=== PATIENT | female | born 1985 | race Caucasian/White ===

== ENCOUNTER 2018-09-25 10:00 | Observation (INO) | payer MEDICAID, OTHER ==
[~2018-09-25] VITALS: Ht 160 cm; Wt 68.0 kg
--- NOTE | 2018-09-25 10:15 | NUR ---
PT 31 WEEKS , L&D RN NOTIFIED AND WILL COME TO ED TO EVALUATE HEART TONES. EKG COMPLETED IN TRIAGE, PT TO ROOM 36 VIA WHEELCHAIR, THERAPEUTIC RECREATION SPECIALIST TO ASSIST PT IN CHANGING INTO GOWN AND PLACING PT ON ALL MONITORS.
--- NOTE | 2018-09-25 10:36 | NUR ---
FIRST CONTACT WITH PT: 32 Y/O FEMALE PRESENTS TO ED WITH C/O SORE THROAT. PT STATES "I'M 3O WEEKS AND I HAVE HAD A SORE THROAT FOR 3 DAYS AND A COUGH. IT'S GOTTEN WORSE OVER THE LAST TWO DAYS. MY LOWER BACK IS SO SORE WELL. IT'S BEEN WORSE OVER THE LAST TWO DAYS. I HAVE VERICOSE VEINS, BUT MY OB IS AWARE AND GOING TO SEND ME TO A SPECIALIST. I'VE BEEN MORE SORE FROM THE WAIST DOWN LATELY." FAMILY BEDSIDE. NO C/O VAGINAL BLEEDING, ABD CRAMPS, CONTRACTIONS, N/V/D, TRAUMA, SYNCOPE, CP. PT STATES "THE BABY IS MOVING A TON." PT PLACED ON CONT PULSE OX,NIBP
--- NOTE | 2018-09-25 10:56 | NUR ---
PT EDUCATED REGARDING UA NEEDED. PT STATES "I DON'T EVEN HAVE TO GO RIGHT NOW. AND NOBODY IS STRAIGHT CATHING ME!" PT GIVEN UA CUP AND TOLD WHERE BATHROOM IS IF SHE IS ABLE TO PROVIDE SAMPLE.
[2018-09-25 11:19] LABS: BASOPHILS # (AUTO) 0.03 x10^3/uL (0-0.1); BASOPHILS % (AUTO) 0 % (0-1); EOSINOPHILS % (AUTO) 0 % (1-7); LYMPHOCYTES # (AUTO) 0.49 x10^3/uL (1-3.4); LYMPHOCYTES % (AUTO) 7 % (22-44); MD NO; MEAN CORPUSCULAR HEMOGLOBIN 29.7 pg (27.0-34.8); MEAN CORPUSCULAR VOLUME 89.9 fL (80-100); MEAN PLATELET VOLUME 8.5 fL (7.4-10.4); MONOCYTES # (AUTO) 0.49 x10^3/uL (0.2-0.8); MONOCYTES % (AUTO) 7 % (2-9); NEUTROPHILS # (AUTO) 6.27 x10^3/uL (1.8-6.8); NEUTROPHILS % (AUTO) 86 % (42-75); PLATELET COUNT 236 x10^3/uL (130-400); RED BLOOD COUNT 3.52 x10^6/uL (3.82-5.3); RED CELL DISTRIBUTION WIDTH 13.1 % (9.6-15.2)
[2018-09-25 11:28] LABS: RAPID INFLUENZA A POSITIVE (Negative); RAPID INFLUENZA B Negative (Negative)
--- NOTE | 2018-09-25 11:29 | NUR ---
PT AMBULATORY WITH STEADY GAIT TO BATHROOM. PT PROVIDED URINE SAMPLE. SAMPLE SENT TO LAB. PT REATTACHED TO ALL MONITORS. NO NEEDS REQUESTED AT THIS TIME.
[2018-09-25] MEDS ORDERED: ACETAMINOPHEN 325 MG TABLET PO ONE (11:30)
[2018-09-25 11:31] LABS: ALANINE AMINOTRANSFERASE 26 U/L (12-78); ALBUMIN 2.6 g/dL (3.4-5.0); ANION GAP 10 mmol/L (5-15); CALCIUM 7.3 mg/dL (8.5-10.1); CHLORIDE 104 mmol/L (98-107)
[2018-09-25 11:36] LABS: ALKALINE PHOSPHATASE 144 U/L (45-117); BILIRUBIN,TOTAL 0.4 mg/dL (0.2-1.0); TOTAL PROTEIN 6.6 g/dL (6.4-8.2)
[2018-09-25] MEDS ORDERED: ACETAMINOPHEN 500 MG TABLET ONE (11:37)
[2018-09-25 11:40] LABS: MICROSCOPIC INDICATED
--- NOTE | 2018-09-25 11:46 | NUR ---
PT CONTINUES TO REST ON GURNEY. PT GIVEN WARM BLANKETS. NO ACUTE DISTRESS NOTED. FAMILY BEDSIDE. NO NEEDS REQUESTED AT THIS TIME
[2018-09-25 11:47] VITALS: BP 94/47
[2018-09-25 11:51] LABS: CULTURE INDICATED? YES
[2018-09-25] MEDS ORDERED: PLEASE ENTER HEIGHT AND WEIGHT MC SCH (12:00)
[2018-09-25] MEDS ORDERED: OSELTAMIVIR 75 MG CAPSULE ONE (12:00)
[2018-09-25] MEDS ORDERED: OSELTAMIVIR 75 MG CAPSULE PO ONE (12:00)
--- NOTE | 2018-09-25 12:01 | NUR ---
PT HAS MASK ON. MASK GIVEN TO MOTHER, MOTHER REFUSES TO WEAR MASK.
--- NOTE | 2018-09-25 12:06 | NUR ---
Patient/Caregiver given discharge instructions and they have confirmed that they understand the instructions. Patient WHEELED UP TO L&D PER REQUEST. PT LEFT WITH ALL PERSONAL BELONGINGS.
[2018-09-25] MEDS ORDERED: LACTATED RINGERS 1,000 ML IVBOLUS PRN (13:00)
== END 2018-09-25 19:20 | disposition home or self-care (01) ==
LOC: ED 11:38 → LDIP 15:41
PROVIDERS: ADMIT Obstetrics & Gynecology; ATTEND Obstetrics & Gynecology
DX: O60.03 Preterm labor without delivery, third trimester (principal); O99.513 Diseases of the respiratory system complicating pregnancy, third trimester; J10.1 Influenza due to other identified influenza virus with other respiratory manifestations; Z87.440 Personal history of urinary (tract) infections; Z3A.30 30 weeks gestation of pregnancy
CPT/HCPCS: 36415; 59025; 71045; 80053; 81001; 83605; 85025; 87081; 87086; 87400; 87880; 93005; 99284; G0378; 87077; 96360; 96361; 96372

== ENCOUNTER → 2018-09-25 | Outpatient (CLI) | payer MEDICAID ==
[~2018-09-25] VITALS: Ht 160 cm; Wt 67.3 kg
[~2018-09-25] MED LIST: LACTATED RINGERS 1,000 ML IV SCH; LACTATED RINGERS 1,000 ML IVBOLUS PRN
[2018-09-25 12:34] VITALS: BP 90/54
== END | disposition home or self-care (01) ==
LOC: LDOP 12:17
PROVIDERS: ATTEND Obstetrics & Gynecology
DX: O26.893 Other specified pregnancy related conditions, third trimester (principal); M54.9 Dorsalgia, unspecified; Z3A.30 30 weeks gestation of pregnancy
CPT/HCPCS: 36415; 82731; J7120

== ENCOUNTER 2018-09-29 07:11 | Outpatient (CLI) | payer MEDICAID ==
[~2018-09-29] VITALS: Ht 160 cm; Wt 68.0 kg
[2018-09-29 07:46] VITALS: BP 118/81
[2018-09-29] MEDS ORDERED: DIPHENHYDRAMINE 25 MG CAPSULE ONE (08:29)
[2018-09-29] MEDS ORDERED: DIPHENHYDRAMINE 25 MG CAPSULE PO ONE (08:30)
[2018-09-29 08:44] LABS: BASOPHILS # (AUTO) 0.02 x10^3/uL (0-0.1); BASOPHILS % (AUTO) 1 % (0-1); EOSINOPHILS # (AUTO) 0.05 x10^3/uL (0-0.4); EOSINOPHILS % (AUTO) 1 % (1-7); LYMPHOCYTES # (AUTO) 1.38 x10^3/uL (1-3.4); LYMPHOCYTES % (AUTO) 33 % (22-44); MD NO; MEAN CORPUSCULAR HEMOGLOBIN 29.5 pg (27.0-34.8); MEAN CORPUSCULAR HGB CONC 32.9 g/dL (32.4-35.8); MEAN CORPUSCULAR VOLUME 89.6 fL (80-100); MEAN PLATELET VOLUME 8.1 fL (7.4-10.4); MONOCYTES # (AUTO) 0.32 x10^3/uL (0.2-0.8); MONOCYTES % (AUTO) 8 % (2-9); NEUTROPHILS # (AUTO) 2.36 x10^3/uL (1.8-6.8); NEUTROPHILS % (AUTO) 57 % (42-75); PLATELET COUNT 268 x10^3/uL (130-400); RED BLOOD COUNT 3.58 x10^6/uL (3.82-5.3); RED CELL DISTRIBUTION WIDTH 13.4 % (9.6-15.2)
[2018-09-29 08:55] LABS: ALANINE AMINOTRANSFERASE 49 U/L (12-78); ALBUMIN 2.2 g/dL (3.4-5.0); ANION GAP 5 mmol/L (5-15); CALCIUM 7.7 mg/dL (8.5-10.1); CHLORIDE 108 mmol/L (98-107); CREATININE 0.56 mg/dL (0.55-1.02)
[2018-09-29 08:57] LABS: ALKALINE PHOSPHATASE 159 U/L (45-117); BILIRUBIN,TOTAL 0.7 mg/dL (0.2-1.0); TOTAL PROTEIN 6.3 g/dL (6.4-8.2)
[2018-09-29] MEDS ORDERED: PREN1TAB60 PO (09:20)
== END 2018-09-29 09:52 | disposition home or self-care (01) ==
LOC: LDOP 07:11
PROVIDERS: ATTEND Obstetrics & Gynecology
DX: O26.893 Other specified pregnancy related conditions, third trimester (principal); L29.9 Pruritus, unspecified; Z3A.31 31 weeks gestation of pregnancy
CPT/HCPCS: 36415; 59025; 80053; 85025; 99211; Q0163; G0463

== ENCOUNTER 2018-10-31 22:17 | Outpatient (CLI) | payer MEDICAID ==
[~2018-10-31 22:17] MED LIST changes: -LACTATED RINGERS 1,000 ML IV SCH; -LACTATED RINGERS 1,000 ML IVBOLUS PRN; +PREN1TAB60 PO
== END 2018-10-31 23:10 | disposition home or self-care (01) ==
LOC: LDOP 22:17
PROVIDERS: ATTEND Obstetrics & Gynecology
DX: O46.93 Antepartum hemorrhage, unspecified, third trimester (principal); Z3A.36 36 weeks gestation of pregnancy
CPT/HCPCS: 59025; 89060; 99211; G0463; Q0114

== ENCOUNTER 2018-11-07 08:01 | Inpatient (IN) | payer MEDICAID ==
[~2018-11-07] VITALS: Ht 160 cm; Wt 65.0 kg
[2018-11-07] MEDS ORDERED: OXYTOCIN 30U/ 0.9% NaCL 500ML 500 ML IV ONE (21:12)
[2018-11-07 21:15] VITALS: BP 125/79
[2018-11-07] MEDS ORDERED: OXYTOCIN 30U/ 0.9% NaCL 500ML 500 ML ONE (21:20)
[2018-11-07] MEDS ORDERED: NEWBORN KIT ONE (21:20)
[2018-11-07] MEDS ORDERED: ONDANSETRON 2MG/ML, 2ML IVPush PRN (21:30)
[2018-11-07] MEDS ORDERED: FENTANYL PF 100 MCG/2ML IVPush PRN (21:30)
[2018-11-07] MEDS ORDERED: CALCIUM CARBONATE 500 MG TAB.CHEW PO PRN (21:30)
[2018-11-07] MEDS ORDERED: PLEASE ENTER HEIGHT AND WEIGHT MC SCH (21:30)
[2018-11-07] MEDS ORDERED: FENTANYL PF 100 MCG/2ML IV PRN (21:30)
[2018-11-07] MEDS: LACTATED RINGERS 1,000 ML IV SCH (21:40)
[2018-11-07] MEDS: D5%-LACTATED RINGERS 1,000 ML IV SCH (21:40)
[2018-11-07 21:46] LABS: BASOPHILS # (AUTO) 0.02 x10^3/uL (0-0.1); BASOPHILS % (AUTO) 0 % (0-1); EOSINOPHILS # (AUTO) 0.08 x10^3/uL (0-0.4); EOSINOPHILS % (AUTO) 1 % (1-7); LYMPHOCYTES # (AUTO) 1.68 x10^3/uL (1-3.4); LYMPHOCYTES % (AUTO) 28 % (22-44); MD NO; MEAN CORPUSCULAR HEMOGLOBIN 29.4 pg (27.0-34.8); MEAN CORPUSCULAR HGB CONC 34.2 g/dL (32.4-35.8); MEAN PLATELET VOLUME 9.5 fL (7.4-10.4); MONOCYTES # (AUTO) 0.33 x10^3/uL (0.2-0.8); MONOCYTES % (AUTO) 5 % (2-9); NEUTROPHILS # (AUTO) 3.94 x10^3/uL (1.8-6.8); NEUTROPHILS % (AUTO) 65 % (42-75); PLATELET COUNT 179 x10^3/uL (130-400); RED BLOOD COUNT 3.24 x10^6/uL (3.82-5.3); RED CELL DISTRIBUTION WIDTH 15.1 % (9.6-15.2)
[2018-11-07 22:01] LABS: ALANINE AMINOTRANSFERASE 21 U/L (12-78); ALBUMIN 2.2 g/dL (3.4-5.0); ANION GAP 8 mmol/L (5-15); CALCIUM 7.7 mg/dL (8.5-10.1); CHLORIDE 108 mmol/L (98-107); CREATININE 0.86 mg/dL (0.55-1.02)
[2018-11-07 22:03] LABS: ALKALINE PHOSPHATASE 203 U/L (45-117); BILIRUBIN,TOTAL 0.3 mg/dL (0.2-1.0)
[2018-11-07] MEDS ORDERED: OXYTOCIN 30U/ 0.9% NaCL 500ML 500 ML IV PRN (23:05)
[2018-11-07] MEDS ORDERED: MISOPROSTOL 25 MCG TABLET ONE (23:12)
[2018-11-07] MEDS ORDERED: MISOPROSTOL 25 MCG TABLET VG PRN (23:30)
[2018-11-07] MEDS ORDERED: URSODIOL 300 MG CAPSULE PO ONE (23:30)
[2018-11-08] MEDS ORDERED: FENTANYL/BUPIV./NS/PF 250 ML EPIDCONT SCH ×2 (00:51→06:02)
[2018-11-08] MEDS ORDERED: FENTANYL PF 500 MCG, BUPIVACAINE/PF 0.5%, 30ML 62.5 ML in SODIUM CHLORIDE 0.9% 177.5 ML EPIDCONT SCH (01:00)
[2018-11-08] MEDS ORDERED: OXYTOCIN 30U/ 0.9% NaCL 500ML 500 ML IV PRN (05:10)
[2018-11-08] MEDS: D5%-LACTATED RINGERS 1,000 ML IV SCH ×2 (05:12→13:12)
[2018-11-08] MEDS ORDERED: BUPIVACAINE 0.25% ONE (05:35)
[2018-11-08] MEDS: LACTATED RINGERS 1,000 ML IV SCH ×4 (06:02→14:02)
[2018-11-08] MEDS ORDERED: LACTATED RINGERS 1,000 ML IVBOLUS PRN (06:30)
[2018-11-08] MEDS ORDERED: EPHEDRINE 50 MG/ML, 1ML IVPush PRN (06:30)
[2018-11-08] MEDS ORDERED: ONDANSETRON 2MG/ML, 2ML ONE (06:39)
[2018-11-08] MEDS ORDERED: EPHEDRINE 50 MG/ML, 1ML ONE (07:57)
[2018-11-08] MEDS: URSODIOL 300 MG CAPSULE PO SCH ×2 (09:21→20:55)
[2018-11-08] MEDS ORDERED: DOCUSATE 100 MG CAPSULE PO PRN (12:30)
[2018-11-08] MEDS ORDERED: OXYcodone/APAP 5/325MG TABLET PO PRN ×2 (12:30)
[2018-11-08] MEDS ORDERED: CARBOPROST TROMETHAMINE 250 MCG/ML, 1ML IM PRN (12:30)
[2018-11-08] MEDS ORDERED: ONDANSETRON 2MG/ML, 2ML IV PRN (12:30)
[2018-11-08] MEDS ORDERED: MISOPROSTOL 200 MCG TABLET PR PRN (12:30)
[2018-11-08] MEDS ORDERED: METHYLERGONOVINE 0.2 MG/ML IM PRN (12:30)
[2018-11-08] MEDS ORDERED: OXYTOCIN 30U/ 0.9% NaCL 500ML 500 ML ONE (13:36)
[2018-11-08] MEDS: OXYTOCIN 30U/ 0.9% NaCL 500ML 500 ML IV SCH ×2 (13:39→22:05)
[2018-11-08] MEDS: IBUPROFEN 800 MG TABLET PO PRN (16:00)
[2018-11-08 16:45] VITALS: BP 113/68
[2018-11-08 19:28] LABS: BASOPHILS # (AUTO) 0.02 x10^3/uL (0-0.1); BASOPHILS % (AUTO) 0 % (0-1); EOSINOPHILS # (AUTO) 0.12 x10^3/uL (0-0.4); EOSINOPHILS % (AUTO) 1 % (1-7); LYMPHOCYTES # (AUTO) 1.06 x10^3/uL (1-3.4); LYMPHOCYTES % (AUTO) 11 % (22-44); MD NO; MEAN CORPUSCULAR HGB CONC 33.4 g/dL (32.4-35.8); MEAN CORPUSCULAR VOLUME 86.8 fL (80-100); MEAN PLATELET VOLUME 9.9 fL (7.4-10.4); MONOCYTES # (AUTO) 0.53 x10^3/uL (0.2-0.8); MONOCYTES % (AUTO) 5 % (2-9); NEUTROPHILS # (AUTO) 8.35 x10^3/uL (1.8-6.8); NEUTROPHILS % (AUTO) 83 % (42-75); PLATELET COUNT 145 x10^3/uL (130-400); RED BLOOD COUNT 3.11 x10^6/uL (3.82-5.3); RED CELL DISTRIBUTION WIDTH 14.8 % (9.6-15.2)
[2018-11-08 21:05] VITALS: BP 113/76
[2018-11-08] MEDS ORDERED: DIPH,PERTUSS(ACELL),TET VAC/PF NC IM-VACC ONE ×2 (23:00→23:14)
[2018-11-09] VITALS: BP 118/81
[2018-11-09] MEDS: IBUPROFEN 800 MG TABLET PO PRN (00:11)
[2018-11-09 05:00] VITALS: BP 106/71
[2018-11-09 07:50] VITALS: BP 115/82
[2018-11-09] MEDS: PRENATAL VIT/IRON/FA 1 EACH TABLET PO SCH ×2 (07:59→08:27)
[2018-11-09] MEDS ORDERED: ACETAMINOPHEN 325 MG TABLET PO PRN (08:00)
[2018-11-09] MEDS ORDERED: IBUPROFEN 600 MG TABLET PO PRN (08:00)
[2018-11-09] MEDS: OXYTOCIN 30U/ 0.9% NaCL 500ML 500 ML IV SCH (08:05)
[2018-11-09] MEDS: URSODIOL 300 MG CAPSULE PO SCH (08:27)
[2018-11-09] MEDS ORDERED: MEASLES,MUMPS&RUBELLA VACC/PF 0.5 ML SQ-VACC ONE (08:30)
[2018-11-09] MEDS ORDERED: IBUP-1223 PO (12:05)
== END 2018-11-09 15:00 | disposition home or self-care (01) | DRG 805 ==
LOC: LDIP 20:52 → 2NW 11-08 15:25
PROVIDERS: ADMIT Obstetrics & Gynecology; ATTEND Obstetrics & Gynecology
PROC: 10E0XZZ Delivery of Products of Conception, External Approach (ICD-10-PCS; principal; 2018-11-08)
PROC: 0KQM0ZZ Repair Perineum Muscle, Open Approach (ICD-10-PCS; 2018-11-08)
PROC: 10907ZC Drainage of Amniotic Fluid, Therapeutic from Products of Conception, Via Natural or Artificial Opening (ICD-10-PCS; 2018-11-08)
PROC: 3E0R3BZ Introduction of Anesthetic Agent into Spinal Canal, Percutaneous Approach (ICD-10-PCS; 2018-11-08)
PROC: 00HU33Z Insertion of Infusion Device into Spinal Canal, Percutaneous Approach (ICD-10-PCS; 2018-11-08)
DX: O26.62 Liver and biliary tract disorders in childbirth (principal); K83.1 Obstruction of bile duct; Z37.0 Single live birth; O71.4 Obstetric high vaginal laceration alone; Z3A.37 37 weeks gestation of pregnancy; O69.81X0 Labor and delivery complicated by cord around neck, without compression, not applicable or unspecified
CPT/HCPCS: 36415; 80053; 85025; 86850; 86900; 90715; G0378; J2405; J2590; J7120

== ENCOUNTER 2021-03-04 23:46 | Inpatient (IN) | payer MEDICAID ==
[~2021-03-04] VITALS: Ht 162.6 cm; Wt 73.0 kg
[~2021-03-04 23:46] MED LIST changes: +IBUP-1223 PO
[2021-03-05] MEDS ORDERED: TERBUTALINE 1 MG/ML, 1ML SQ PRN
[2021-03-05] MEDS ORDERED: OXYTOCIN 30U/ 0.9% NaCL 500ML 500 ML IV PRN
[2021-03-05] MEDS ORDERED: ONDANSETRON 2MG/ML, 2ML IVPush PRN
[2021-03-05] MEDS ORDERED: FENTANYL PF 100 MCG/2ML IV PRN
[2021-03-05] MEDS ORDERED: OXYTOCIN 30U/ 0.9% NaCL 500ML 500 ML IV ONE
[2021-03-05] MEDS ORDERED: TERBUTALINE 1 MG/ML, 1ML IVPush PRN
[2021-03-05] MEDS ORDERED: NEWBORN KIT ONE (00:18)
[2021-03-05] MEDS: FENTANYL PF 100 MCG/2ML IVPush PRN ×3 (00:24→15:15)
[2021-03-05 01:04] LABS: BASOPHILS % (AUTO) 0 % (0-1); EOSINOPHILS % (AUTO) 0 % (1-7); LYMPHOCYTES % (AUTO) 17 % (22-44); MEAN CORPUSCULAR HEMOGLOBIN 22.3 pg (27.0-34.8); MEAN CORPUSCULAR HGB CONC 31.3 g/dL (32.4-35.8); MEAN PLATELET VOLUME 8.3 fL (7.4-10.4); MONOCYTES % (AUTO) 6 % (2-9); NEUTROPHILS % (AUTO) 77 % (42-75); PLATELET COUNT 313 x10^3/uL (130-400); RED BLOOD COUNT 3.59 x10^6/uL (3.82-5.3)
[2021-03-05] MEDS ORDERED: BUPIVACAINE 0.25% ONE (01:21)
[2021-03-05] MEDS ORDERED: FENTANYL/BUPIV./NS/PF 250 ML EPIDCONT ONE (01:22)
[2021-03-05] MEDS ORDERED: FENTANYL/BUPIV./NS/PF 250 ML EPIDCONT SCH (02:00)
[2021-03-05] MEDS ORDERED: LACTATED RINGERS 1,000 ML IVBOLUS PRN (02:00)
[2021-03-05] MEDS ORDERED: LACTATED RINGERS 1,000 ML IV SCH ×2 (02:00)
[2021-03-05] MEDS ORDERED: EPHEDRINE 50 MG/ML, 1ML IVPush PRN (02:00)
[2021-03-05] MEDS ORDERED: ONDANSETRON 2MG/ML, 2ML IV PRN (02:30)
[2021-03-05] MEDS ORDERED: OXYcodone/APAP 5/325MG TABLET PO PRN ×2 (02:30)
[2021-03-05] MEDS ORDERED: ACETAMINOPHEN 325 MG TABLET PO PRN (02:30)
[2021-03-05] MEDS ORDERED: SIMETHICONE 80 MG CHEW TAB PO PRN (02:30)
[2021-03-05] MEDS ORDERED: IBUPROFEN 600 MG TABLET ONE (02:30)
[2021-03-05] MEDS ORDERED: OXYTOCIN 30U/ 0.9% NaCL 500ML 500 ML IV SCH (02:30)
[2021-03-05] MEDS ORDERED: MISOPROSTOL 200 MCG TABLET PR PRN (02:30)
[2021-03-05 05:30] VITALS: BP 115/74
[2021-03-05] MEDS: DOCUSATE 100 MG CAPSULE PO PRN ×2 (08:11→20:28)
[2021-03-05] MEDS: IBUPROFEN 600 MG TABLET PO PRN ×3 (08:11→20:28)
[2021-03-05] MEDS: PRENATAL VIT/IRON/FA 1 EACH TABLET PO SCH (08:11)
[2021-03-05 08:35] VITALS: BP 122/82
[2021-03-05 11:21] LABS: BASOPHILS % (AUTO) 0 % (0-1); EOSINOPHILS % (AUTO) 0 % (1-7); LYMPHOCYTES % (AUTO) 10 % (22-44); MEAN CORPUSCULAR HGB CONC 31.1 g/dL (32.4-35.8); MEAN PLATELET VOLUME 8.2 fL (7.4-10.4); MONOCYTES % (AUTO) 6 % (2-9); NEUTROPHILS % (AUTO) 84 % (42-75); PLATELET COUNT 268 x10^3/uL (130-400); RED BLOOD COUNT 3.34 x10^6/uL (3.82-5.3); RED CELL DISTRIBUTION WIDTH 19.9 % (9.6-15.2)
[2021-03-05 12:15] VITALS: BP 114/75
[2021-03-05 16:30] VITALS: BP 131/83
[2021-03-05 19:30] VITALS: BP 121/76
[2021-03-06 00:43] VITALS: BP 132/86
[2021-03-06] MEDS: IBUPROFEN 600 MG TABLET PO PRN (08:01)
[2021-03-06] MEDS: PRENATAL VIT/IRON/FA 1 EACH TABLET PO SCH (08:01)
[2021-03-06] MEDS: DOCUSATE 100 MG CAPSULE PO PRN (08:01)
[2021-03-06 08:35] VITALS: BP 127/75
[2021-03-06] MEDS ORDERED: IBUP-1222 PO (17:06)
== END 2021-03-06 18:00 | disposition home or self-care (01) | DRG 807 ==
LOC: LDOP 23:46 → LDIP 23:59 → 2NW 03-05 05:11
PROVIDERS: ADMIT Pediatrics; ATTEND Obstetrics & Gynecology
PROC: 10E0XZZ Delivery of Products of Conception, External Approach (ICD-10-PCS; principal; 2021-03-05)
PROC: 3E0R3BZ Introduction of Anesthetic Agent into Spinal Canal, Percutaneous Approach (ICD-10-PCS; 2021-03-05)
PROC: 00HU33Z Insertion of Infusion Device into Spinal Canal, Percutaneous Approach (ICD-10-PCS; 2021-03-05)
DX: O69.81X0 Labor and delivery complicated by cord around neck, without compression, not applicable or unspecified (principal); Z37.0 Single live birth; O77.0 Labor and delivery complicated by meconium in amniotic fluid; O71.82 Other specified trauma to perineum and vulva; Z3A.39 39 weeks gestation of pregnancy; Z80.41 Family history of malignant neoplasm of ovary; Z82.49 Family history of ischemic heart disease and other diseases of the circulatory system; Z23 Encounter for immunization; Z20.822 Contact with and (suspected) exposure to COVID-19
CPT/HCPCS: 36415; 85025; 86592; 86850; 86900; 87635; G0378; J3010